=== PATIENT | female | born 1955 | race Caucasian/White ===

== ENCOUNTER 2020-12-05 13:36 | Inpatient (IN) ==
--- NOTE | 2020-12-05 14:16 | XRay Report ---
CLINICAL INFORMATION: Preop COMPARISON: None. TECHNIQUE: Portable FINDINGS: The heart size, mediastinum and pulmonary vessels are unremarkable. The lungs are clear. There are no effusions. The bones and soft tissues are within normal limits. IMPRESSION: Normal chest. Interpreted and Authenticated by: Sánchez Hudson 12/05/20
[2020-12-05 15:06] LABS: ALT/SGPT 21 U/L (<40); AST/SGOT 27 U/L (<32); Albumin 4.6 gm/dL (3.2-5.2); Albumin/Globulin Ratio 1.7 (1.0-2.3); Alkaline Phosphatase 125 U/L (39-117); Bilirubin,Total 0.4 mg/dL (0.1-1.0); Blood Urea Nitrogen 17 mg/dL (8-23); Calcium 9.3 mg/dL (8.6-10.4); Carbon Dioxide 25 mmol/L (22-30); Chloride 102 mmol/L (96-108); Globulin 2.7 gm/dL (2.2-3.7); Glomerular Filtration Rate 77; Glucose 95 mg/dL (70-105)
[2020-12-05 15:50] LABS: Basophils # (Auto) 0.04 K/mcL (0.00-0.20); Basophils % (Auto) 0.3 % (0.0-2.0); Eosinophils # (Auto) 0.02 K/mcL (0.00-0.70); Eosinophils % (Auto) 0.1 % (0.0-7.0); Hematocrit 44.5 % (36.0-48.0); Hemoglobin 14.9 g/dL (12.0-15.0); Lymphocytes # (Auto) 1.15 K/mcL (1.50-4.80); Lymphocytes % (Auto) 8.4 % (15.0-49.0); Mean Cell Volume 88.3 fL (80.0-100.0); Mean Corpuscular HGB Conc 33.5 g/dL (31.0-36.0); Mean Platelet Volume 11.9 fL (7.4-10.4); Monocytes # (Auto) 0.59 K/mcL (0.10-0.90); Monocytes % (Auto) 4.3 % (1.0-12.0); Neutrophils % (Auto) 86.9 % (38.0-78.0); Platelet Count 183 K/mcL (140-440); RBC 5.04 M/mcL (4.00-5.20); Red Cell Distribution Width 13.2 % (11.5-14.5); WBC 13.6 K/mcL (4.5-11.0)
--- NOTE | 2020-12-05 16:00 | Internal Med History&Physical ---
HPI History of Present Illness Patient information: Note initiated : 12/05/20 at 4:00 pm Service Date, if different from initiated Date: [] Patient: Hailee Quintana a 65 y/o F admitted on for Lf femur fracture. Chief Complaint: [] History of present illness: Ms. Quintana is a 65 year old F who lives with her at [place] and fairly healthy at baseline who was getting off her suburban climbing down backward and missed the ledge landing on the concrete surface. Patient immediately felt pain and was taken to the ER where she was diagnosed with left hip fracture. Orthopedics were consulted and recommended transfer patient to [facility] ER for further evaluation and operative intervention. Work-up was essentially unremarkable with a normal biochemical profile, white count 13.5. Patient denies history of DM type II/CAD/CVA/HTN and currently is on no medications. She has 8 kids, has had , non-smoker. She denies precipitating events including lightheadedness dizziness prior or loss of consciousness following fall. Review of systems 10 point review system was performed and is negative except for ones cussed above PFSH PFSH All Active Problems (Updated 12/05/20 @ 16:12 by Barrie Peralta MD) Fracture of hip (Acute) MEDS/ALLERGIES Home Medications and Allergies Home Medications Medication Instructions Recorded Confirmed Type No Known Home Meds 12/05/20 12/05/20 History Allergies Allergy/AdvReac Type Severity Reaction Status Date / Time No Known Drug Allergies Allergy Verified 12/05/20 13:44 EXAM Constitutional Vitals: Temp Pulse Resp BP Pulse Ox 97.9 F 61 18 150/74 97 12/05/20 13:38 12/05/20 15:16 12/05/20 13:38 12/05/20 15:16 12/05/20 15:16 Alert oriented Head normocephalic Oral cavity moist No ear or nose discharge Eye no subconjunctival pallor, movement symmetrical S1-S2 regular Nonlabored breathing Nondistended nontender abdomen Left lower externally Rotated and shortened, no cyanosis clubbing or joint swelling Skin no suspicious lesion Psych anxious but no hallucination Neuro normal higher function on limited neuro exam DATA Data Completed and Pending Labs: Labs from last 24 hours 12/05/20 12/05/20 12/05/20 15:05 14:06 14:06 WBC 13.6 H RBC 5.04 Hgb 14.9 Hct 44.5 MCV 88.3 MCH 29.6 MCHC 33.5 RDW 13.2 Plt Count 183 MPV 11.9 H Neut % (Auto) 86.9 H Lymph % (Auto) 8.4 L [place] % (Auto) 4.3 Eos % (Auto) 0.1 Baso % (Auto) 0.3 Lymph # (Auto) 1.15 L [place] # (Auto) 0.59 Eos # (Auto) 0.02 Baso # (Auto) 0.04 Absolute Neutrophils 11.84 H Sodium 137 Potassium 4.0 Chloride 102 Carbon Dioxide 25 Anion Gap 10.0 BUN 17 Creatinine 0.8 GFR Calculation 77 Glucose 95 Calcium 9.3 Total Bilirubin 0.4 AST 27 ALT 21 Alkaline Phosphatase 125 H Total Protein 7.3 Albumin 4.6 Globulin 2.7 Albumin/Globulin Ratio 1.7 Urine Color Pending Urine Appearance Pending Urine pH Pending Ur Specific [place] Pending Urine Protein Pending Urine Glucose (UA) Pending Urine Ketones Pending Urine Occult Blood Pending Urine Nitrate Pending Urine Bilirubin Pending Urine Urobilinogen Pending Ur Leukocyte Esterase Pending A/P Narrative A/P Narrative: * Left hip fracture orthopedic consulted. Await operative intervention * Preop risk evaluation-moderate to high risk based on her age. No modifiable risk factor. No prior chronic health issues * Pain management on as needed opioids * PT OT post surgery Plan * Inpatient admission * Pain management * Orthopedic consult * Keep n.p.o. after midnight Time Spent With Patient Time: Total time spent is greater than 50% in coordination of care (as documented) at patient's floor/unit and/or counseling patient:
[2020-12-05 16:02] LABS: Appearance,Urine HAZY (Clear); Bilirubin,Urine Negative (Negative); Color,Urine YELLOW; Culture Indicated,Urine No; Glucose,Urine (UA) Negative (Negative); Ketones,Urine 5 mg/dL (Negative); Leukocyte Esterase,Urine Negative /ug (Negative); Nitrate,Urine Negative (Negative); Protein,Urine Negative (Negative); Urine Blood Negative (Negative); Urobilinogen,Urine Negative
--- NOTE | 2020-12-05 16:05 | Emergency Department Note ---
Lower Extremity Injury HPI General Chief Complaint: Extremity Injury, Lower Stated Complaint: Lf femur fracture Time Seen by Provider: 12/05/20 15:15 Source: EMS Mode of arrival: EMS Limitations: no limitations History of Present Illness HPI Narrative: Narrative: Presents to room T4 in transfer from outside facility for higher level of care. The patient had a mechanical fall where she missed stepped out of her truck causing her to fall and break her left hip. She was diagnosed with a femoral neck fracture and Dr. Ortiz has accepted the patient in higher level care for definitive treatment. The patient denies any complaints at the time of my evaluation. She states her pain has been adequately controlled Related Data Allergies Allergy/AdvReac Type Severity Reaction Status Date / Time No Known Drug Allergies Allergy Verified 12/05/20 13:44 Review of Systems ROS ROS Narrative: Narrative: All systems ED: reviewed and negative except as stated. [facility] Narrative Patient History Narrative: Narrative: Medical/Surgical/Family History All Active Problems (Updated 12/05/20 @ 16:12 by Barrie Peralta MD) Fracture of hip (Acute) Social History Smoking Status: Never smoker Exam Narrative Narrative: Narrative: General Limitations: no limitations General appearance: Present alert and in no apparent distress Head Head: Present atraumatic, normocephalic and normal inspection Eye Eye: Present normal appearance and EOMI; Absent conjunctival injection ENT ENT: Present normal exam and mucous membranes moist Neck Neck: Present normal inspection and trachea midline Respiratory Respiratory: Present normal lung sounds bilaterally; Absent respiratory distress Cardiovascular Cardiovascular: Present regular rate, normal rhythm and normal heart sounds Adbominal Abdominal: Present soft; Absent distention, tenderness, guarding and rebound Extremities Extremities: Present normal inspection and tenderness (Moderate diffuse tenderness to palpation over the left greater trochanter. With some swelling.); Absent full ROM (Limited range of motion secondary to pain) Back Back: Present normal inspection; Absent tenderness Neurological Neurological: Present alert, oriented X3 and CN II-XII intact; Absent motor sensory deficit Psychiatric Psychiatric: Present normal affect and normal mood Skin Skin: Present warm (WNL) and dry; Absent rash Course Vital Signs Vital signs: Vital Signs Temperature 97.9 F 12/05/20 13:38 Pulse Rate 73 12/05/20 13:38 Respiratory Rate 18 12/05/20 13:38 Blood Pressure 157/81 12/05/20 13:38 Pulse Oximetry (%) 98 12/05/20 13:38 Temperature 97.9 F 12/05/20 13:38 Pulse Rate 61 12/05/20 15:16 Respiratory Rate 18 12/05/20 13:38 Blood Pressure 150/74 12/05/20 15:16 Pulse Oximetry (%) 97 12/05/20 15:16 MDM MDM Narrative Medical decision making narrative: Narrative: Patient presents for definitive care of a hip fracture from outside facility. Preop labs were ordered and reviewed. Chest x-ray is unremarkable. EKG is unremarkable. Dr. Ortiz was notified. I have also discussed the case with the hospitalist will admit the patient Lab Data Lab results reviewed: Yes I reviewed the patient's lab results. Result diagrams: 12/05/20 14:06 12/05/20 14:06 Labs: Lab Results 12/05/20 12/05/20 Range/Units 14:06 14:06 WBC 13.6 H (4.5-11.0) K/mcL RBC 5.04 (4.00-5.20) M/mcL Hgb 14.9 (12.0-15.0) g/dL Hct 44.5 (36.0-48.0) % MCV 88.3 (80.0-100.0) fL MCH 29.6 (26.0-34.0) pg MCHC 33.5 (31.0-36.0) g/dL RDW 13.2 (11.5-14.5) % Plt Count 183 (140-440) K/mcL MPV 11.9 H (7.4-10.4) fL Neut % (Auto) 86.9 H (38.0-78.0) % Lymph % (Auto) 8.4 L (15.0-49.0) % [place] % (Auto) 4.3 (1.0-12.0) % Eos % (Auto) 0.1 (0.0-7.0) % Baso % (Auto) 0.3 (0.0-2.0) % Lymph # (Auto) 1.15 L (1.50-4.80) K/mcL [place] # (Auto) 0.59 (0.10-0.90) K/mcL Eos # (Auto) 0.02 (0.00-0.70) K/mcL Baso # (Auto) 0.04 (0.00-0.20) K/mcL Absolute Neutrophils 11.84 H (1.80-8.00) K/mcL Sodium 137 (133-145) mmol/L Potassium 4.0 (3.3-5.1) mmol/L Chloride 102 (96-108) mmol/L Carbon Dioxide 25 (22-30) mmol/L Anion Gap 10.0 (8.0-16.0) BUN 17 (8-23) mg/dL Creatinine 0.8 (0.6-1.1) mg/dL GFR Calculation 77 Glucose 95 (70-105) mg/dL Calcium 9.3 (8.6-10.4) mg/dL Total Bilirubin 0.4 (0.1-1.0) mg/dL AST 27 (<32) U/L ALT 21 (<40) U/L Alkaline Phosphatase 125 H (39-117) U/L Total Protein 7.3 (5.9-8.4) gm/dL Albumin 4.6 (3.2-5.2) gm/dL Globulin 2.7 (2.2-3.7) gm/dL Albumin/Globulin Ratio 1.7 (1.0-2.3) ED POC Tests ED POC Tests: CINDY - SARS Antigen Negative Radiology Data Radiology results reviewed: Yes I reviewed the patient's radiology results. EKG Data EKG #1: EKG attestation: Yes I reviewed and interpreted this EKG., Yes There are no EKG findings of acute coronary syndrome and Yes This EKG will be read by powertrain engineer EKG results narrative: Normal sinus rhythm, rate 63, normal ST, normal QRS, no ectopy Rhythm Strip Data Rhythm Strip Rate: 63 Interpretation: Normal sinus rhythm Pulse Oximetry Data Pulse Ox %: 97 Interpretation: Room air, normal Discharge Plan Patient/Caregiver Discharge Instructions Pt seen by FLAT FOLDER/PA only: No Clinical Impression: Fracture of hip Patient Disposition: Xfer As Inpt ([facility]) Follow up with: Unknown,Unknown [Primary Care Provider] -
[2020-12-05] MEDS ORDERED: ONDANSETRON 4 MG ODT TABLET SL PRN (16:29)
[2020-12-05] MEDS ORDERED: traMADol 50 MG TABLET PO PRN (16:29)
[2020-12-05] MEDS ORDERED: BISACODYL 10 MG SUPP.RECT PR PRN (16:29)
[2020-12-05] MEDS ORDERED: guaiFENesin/CODEINE 10 ML UDC PO PRN (16:29)
[2020-12-05] MEDS ORDERED: ACETAMINOPHEN 650 MG/65 ML BAG IV PRN (16:29)
[2020-12-05] MEDS ORDERED: MAGNESIUM SULFATE 2 GM/50 ML BAG IV PRN (16:29)
[2020-12-05] MEDS ORDERED: ACETAMINOPHEN 325 MG TABLET PO PRN (16:29)
[2020-12-05] MEDS ORDERED: POTASSIUM CHLORIDE 40 MEQ in DEXTROSE 5% IN WATER 500 ML IV PRN (16:29)
[2020-12-05] MEDS ORDERED: POLYETHYLENE GLYCOL 3350 17 GM PACKET PO PRN (16:29)
[2020-12-05] MEDS ORDERED: ONDANSETRON 4 MG/2 ML VIAL IV PRN (16:29)
[2020-12-05] MEDS ORDERED: MELATONIN 3 MG TABLET PO PRN (16:29)
[2020-12-05] MEDS: 0.9 % SODIUM CHLORIDE 1,000 ML IV SCH (16:48)
[2020-12-05] MEDS: HYDROmorphone 0.5 MG/0.5 ML SYRINGE IV PRN ×2 (16:49→21:11)
--- NOTE | 2020-12-05 17:18 | EKG ---
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 Measurements Intervals [place] Rate: 63 P: 0 PA: 163 QRS: 52 QRSD: 82 T: 65 QT: 424 QTc: 435 Interpretive Statements Sinus rhythm NO PRIOR TRACING FOR COMPARISON NORMAL TRACING Electronically Signed On 12-05-2020 17:18:28 PDT by Rudy Lisa M.D. /store/M0/[id number]
[2020-12-05] MEDS: DOCUSATE SODIUM 100 MG CAPSULE PO SCH (20:07)
[2020-12-05] MEDS: 0.9 % SODIUM CHLORIDE 10 ML SYRINGE IV SCH (20:08)
[2020-12-05] MEDS ORDERED: SENNOSIDES/DOCUSATE SODIUM 1 TAB TABLET PO SCH (21:00)
[2020-12-05] MEDS ORDERED: METHOCARBAMOL 1,000 MG/10 ML VIAL IV PRN (21:16)
[2020-12-06] MEDS: HYDROmorphone 0.5 MG/0.5 ML SYRINGE IV PRN ×2 (02:31→07:10)
[2020-12-06] MEDS: 0.9 % SODIUM CHLORIDE 10 ML SYRINGE IV SCH ×6 (05:32→23:08)
[2020-12-06 06:39] LABS: Basophils # (Auto) 0.03 K/mcL (0.00-0.20); Basophils % (Auto) 0.3 % (0.0-2.0); Eosinophils # (Auto) 0.09 K/mcL (0.00-0.70); Eosinophils % (Auto) 0.8 % (0.0-7.0); Hematocrit 39.4 % (36.0-48.0); Lymphocytes # (Auto) 2.08 K/mcL (1.50-4.80); Lymphocytes % (Auto) 17.6 % (15.0-49.0); Mean Cell Volume 90.4 fL (80.0-100.0); Mean Platelet Volume 10.4 fL (7.4-10.4); Monocytes # (Auto) 1.11 K/mcL (0.10-0.90); Monocytes % (Auto) 9.4 % (1.0-12.0); Neutrophils % (Auto) 71.9 % (38.0-78.0); Platelet Count 270 K/mcL (140-440); RBC 4.36 M/mcL (4.00-5.20); Red Cell Distribution Width 13.3 % (11.5-14.5); WBC 11.8 K/mcL (4.5-11.0)
[2020-12-06 06:59] LABS: ALT/SGPT 15 U/L (<40); AST/SGOT 15 U/L (<32); Albumin 3.6 gm/dL (3.2-5.2); Albumin/Globulin Ratio 1.4 (1.0-2.3); Alkaline Phosphatase 112 U/L (39-117); Bilirubin,Direct < 0.2 mg/dL (0-0.3); Bilirubin,Total 0.5 mg/dL (0.1-1.0); Blood Urea Nitrogen 13 mg/dL (8-23); Calcium 8.7 mg/dL (8.6-10.4); Carbon Dioxide 25 mmol/L (22-30); Chloride 102 mmol/L (96-108); Globulin 2.5 gm/dL (2.2-3.7); Glomerular Filtration Rate 90; Glucose 110 mg/dL (70-105); Lactate Dehydrogenase 216 U/L (135-225); Phosphorous 3.6 mg/dL (2.5-4.5); Triglycerides 130 mg/dL (<150); Uric Acid 4.7 mg/dL (2.5-8.0)
--- NOTE | 2020-12-06 07:04 | Consultation ---
DATE OF CONSULTATION: 12/05/2020 REASON FOR CONSULTATION: Left hip fracture. CONSULTING PROVIDER: ER physician, Barrie Peralta M.D. at [facility]. HISTORY OF PRESENT ILLNESS: The patient is a 65-year-old otherwise healthy female who presents as a transfer from outside facility for a left displaced femoral neck fracture. She reports that she was getting out of her vehicle when she missed last step and resulted in a fall onto her left hip. She had immediate pain and inability to bear weight and was transferred to the local hospital in [place] at that time and found to have a fracture and was transferred to [facility] given bed availability. She denies any lightheadedness or dizziness or any other injuries with the incident. PAST MEDICAL HISTORY: None reported. PAST SURGICAL HISTORY: None reported. ALLERGIES: No known drug allergies. MEDICATIONS: None routinely. SOCIAL HISTORY: She denies tobacco use. She resides with her in [facility]. PHYSICAL EXAMINATION: GENERAL: The patient is alert, oriented, interactive and appropriate. She is in no acute distress. VITAL SIGNS: She is afebrile with temperature of 97.6, blood pressure is 132/77 with a heart rate of 86, satting 97% on room air. EXTREMITIES: Reveals focal injury to her left lower extremity. Her skin is intact throughout the extremity. She does have road rash type of discoloration over the lateral hip region as well as over the anterior aspect of her left knee. She reports that this is chronic for the last several years in her rash, which she applies lotion to. She has no tenderness to palpation about the knee, leg, the foot. She does have some dependent edema about her foot itself. No joint effusion throughout her foot is warm and well perfused. Sensation is intact. It is externally rotated and somewhat a flexed position. LABORATORY DATA: She has a CBC with white count of 13.6, hemoglobin 14.9, hematocrit 44.5, platelets 183. Her creatinine is 0.8 and glucose is 95. Her UA is negative. IMAGING: Reviewed from [place] demonstrated a displaced femoral neck fracture with mild underlying osteoarthritis of the hip joint itself. ASSESSMENT AND PLAN: This is a 65-year-old female, otherwise relatively healthy. However, overweight with a displaced left femoral neck fracture. I discussed the diagnosis with her as well as treatment options. Discussed that fixing this with operative intervention such as a typical fracture would likely lead to nonunion or femoral head avascular necrosis, which will be painful and require intervention. These typically are treated with a hip hemiarthroplasty or total hip arthroplasty. Given her age and mild underlying osteoarthritis, I do think that a total hip arthroplasty would be in her best interest. I discussed this with her at length and discussed the risk of this procedure versus doing talat, discussed the benefits of either. After discussion with her, she does want to proceed with total hip arthroplasty. I have discussed this case with Dr. العلي who agrees with proceeding with her case tomorrow morning. She will remain n.p.o. and nonweightbearing until then. Otherwise, her questions were answered. DLW:man Job ID: [id number] Doc ID: [id number] Jovanni Ortiz MD [facility]
[2020-12-06] MEDS: MULTIVIT,THER IRON,CA,FA & MIN 1 TABLET PO SCH (07:45)
[2020-12-06] MEDS: DOCUSATE SODIUM 100 MG CAPSULE PO SCH ×2 (07:45→21:00)
[2020-12-06] MEDS ORDERED: IPRATROPIUM/ALBUTEROL 3 ML AMPUL.NEB NEB PRN ×2 (09:00→13:13)
[2020-12-06] MEDS ORDERED: SCOPOLAMINE 1 PATCH PATCH TOPICAL PRN (10:00)
--- NOTE | 2020-12-06 10:19 | Internal Med Progress Note ---
SUBJECTIVE Subjective Patient information: Note initiated : 12/06/20 at 10:17 am Service Date, if different from initiated Date: [] Patient: Hailee Quintana a 65 y/o F admitted on 12/05/20 for Lf femur fracture. Chief Complaint: [] Interval history: Ms. Quintana is a 65 year old F who lives with her at [place] and fairly healthy at baseline who was getting off her suburban climbing down backward and missed the ledge landing on the concrete surface. Patient immediately felt pain and was taken to the ER where she was diagnosed with left hip fracture. Orthopedics were consulted and recommended transfer patient to [facility] ER for further evaluation and operative intervention. Work-up was essentially unremarkable with a normal biochemical profile, white count 13.5. Patient denies history of DM type II/CAD/CVA/HTN and currently is o n no medications. She has 8 kids, has had , non-smoker. She denies precipitating events including lightheadedness dizziness prior or loss of consciousness following fall. 12/06-patient doing well. Await surgery this morning. Pain good control. No overnight fever chills. Will review postop Constitutional Vitals: Vital Signs Temp Pulse Resp BP Pulse Ox 97.7 F 75 16 159/81 96 12/06/20 07:44 12/06/20 07:44 12/06/20 07:44 12/06/20 07:44 12/06/20 07:44 Period Temp Pulse Resp BP Sys/Jarvis Pulse Ox Last 24 Hr 97.5 F-98.4 F 60-86 16-20 139-183/74-94 94-100 Intake and Output 12/05/20 12/06/20 12/06/20 21:59 05:59 13:59 Intake Total 600 400 0 Output Total 1000 Balance 600 -600 0 Weight 86.183 kg alert oriented Nonlabored breathing No anxiety Left lower extremity externally rotated and shortened Intake & Output: Intake & Output 12/05/20 12/06/20 12/06/20 21:59 05:59 13:59 Intake Total 600 400 0 Output Total 1000 Balance 600 -600 0 Weight 86.183 kg Intake: Oral 600 400 0 Output: Urine Catheter Amount 1000 Other: Meal Dinner Percent of Meal Consumed 100% Feeding Ability Independent Urine Appearance Clear Clear Clear Uretheral (Jonas) Clear Clear Urine Color Pale Pale Straw Uretheral (Jonas) Straw Straw Urine Odor Normal Normal Normal Uretheral (Jonas) Normal Normal OBJ DATA Labs CBC & Chem 7: 12/06/20 05:35 12/06/20 05:35 Labs: Abnormal Lab Results 12/06/20 12/06/20 12/05/20 05:35 05:35 15:05 WBC 11.8 H MPV Neut % (Auto) Lymph % (Auto) Lymph # (Auto) [place] # (Auto) 1.11 H Absolute Neutrophils 8.51 H Anion Gap 7.0 L Glucose 110 H Alkaline Phosphatase Urine Appearance Hazy A Urine Ketones 5 A 12/05/20 12/05/20 14:06 14:06 WBC 13.6 H MPV 11.9 H Neut % (Auto) 86.9 H Lymph % (Auto) 8.4 L Lymph # (Auto) 1.15 L [place] # (Auto) Absolute Neutrophils 11.84 H Anion Gap Glucose Alkaline Phosphatase 125 H Urine Appearance Urine Ketones Meds: Medications Acetaminophen (Acetaminophen 325 Mg Tablet) 650 mg PO Q4-6HP PRN; Protocol PRN Reason: Per Pain Protocol/Fever > 101 Albuterol/Ipratropium (Ipratropium/Albuterol 3 Ml Ampul.Neb) 3 ml NEB ONCE PRN PRN Reason: Shortness Of Breath Stop: 12/06/20 16:00 Bisacodyl (Bisacodyl 10 Mg Supp.Rect) 10 mg MI Q2-3DAYS PRN PRN Reason: Constipation Docusate Sodium (Docusate Sodium 100 Mg Capsule) 100 mg PO BID [facility] Last Admin: 12/06/20 07:45 Dose: Not Given Documented by: Guaifenesin/Codeine Phosphate (Guaifenesin/Codeine 10 Ml Udc) 10 ml PO Q4HP PRN PRN Reason: Cough Hydromorphone HCl (Hydromorphone 0.5 Mg/0.5 Ml Syringe) 0.25 - 0.5 mg IV Q4HP PRN; Protocol PRN Reason: Per Pain Protocol Last Admin: 12/06/20 07:10 Dose: 0.5 mg Documented by: Potassium Chloride 40 meq/ (Dextrose) 520 mls @ 130 mls/hr IV UD PRN PRN Reason: K+ = or < 3.5 Acetaminophen (Ofirmev) 650 mg in 65 mls @ 130 mls/hr IV Q6HP PRN; Protocol PRN Reason: Per Pain Protocol/Fever > 101 Magnesium Sulfate (Magnesium Sulfate) 2 gm in 50 mls @ 50 mls/hr IV UD PRN PRN Reason: MG = or < 1.7 Sodium Chloride (Sodium Chloride 0.9%) 1,000 mls @ 50 mls/hr IV .Q20H [facility] Stop: 12/08/20 04:28 Last Admin: 12/05/20 16:48 Dose: 50 mls/hr Documented by: Iron Carb/Multivit/Access Clerk/Folic Acid (Multivit,Ther Iron,Ca,Fa & Min 1 Tablet) 1 tab PO DAILY [facility] Last Admin: 12/06/20 07:45 Dose: Not Given Documented by: Melatonin (Melatonin 3 Mg Tablet) 3 mg PO HSP PRN PRN Reason: Insomnia Methocarbamol (Methocarbamol 1,000 Mg/10 Ml Vial) 750 mg IV Q6HP PRN PRN Reason: Muscle Spasm Last Admin: 12/05/20 23:59 Dose: 750 mg Documented by: Ondansetron HCl (Ondansetron 4 Mg Odt Tablet) 4 mg SL Q4-6HP PRN; Protocol PRN Reason: Nausea And Vomiting Ondansetron HCl (Ondansetron 4 Mg/2 Ml Vial) 4 mg IV Q4-6HP PRN; Protocol PRN Reason: Nausea And Vomiting Polyethylene Glycol (Polyethylene Glycol 3350 17 Gm Packet) 17 gm PO DAILYP PRN PRN Reason: Constipation Scopolamine (Scopolamine 1 Patch Patch) 1 patch TOPICAL PREOP PRN PRN Reason: Nausea And Vomiting Stop: 12/06/20 16:00 Senna/Docusate Sodium (Sennosides/Docusate Sodium 1 Tab Tablet) 1 tab PO HS [facility] Last Admin: 12/05/20 20:08 Dose: Not Given Documented by: Sodium Chloride (0.9 % Sodium Chloride 10 Ml Syringe) 10 ml IV Q8 [facility] Last Admin: 12/06/20 05:32 Dose: Not Given Documented by: Tramadol HCl (Tramadol 50 Mg Tablet) 50 mg PO Q4-6HP PRN; Protocol PRN Reason: Per Pain Protocol A/P Narrative A/P Narrative: * Left hip fracture orthopedic consulted. Surgery today. Will review postop * Pain management on as needed opioids * PT OT post surgery as per orthopedics Plan * Review postop * Pain management * No further recommendations from hospitalist service Time Spent With Patient Time: Total time spent is greater than 50% in coordination of care (as documented) at patient's floor/unit and/or counseling patient: QUALITY VTE Deep Vein Thrombosis/Pulmonary Embolism Present on Admission: No
[2020-12-06] MEDS ORDERED: ceFAZolin 2 GM in DEXTROSE 5% IN WATER 50 ML IV SCH (11:30)
[2020-12-06] MEDS ORDERED: MIDAZOLAM 2 MG/2 ML VIAL ONE (11:45)
[2020-12-06] MEDS ORDERED: ONDANSETRON 4 MG/2 ML VIAL ONE (11:45)
[2020-12-06] MEDS ORDERED: GLYCOPYRROLATE 0.2 MG/ML VIAL IV ONE (11:45)
[2020-12-06] MEDS ORDERED: PROPOFOL 200 MG/20 ML VIAL IV ONE (11:45)
[2020-12-06] MEDS ORDERED: KETAMINE 50 MG/ML ML ONE (11:45)
[2020-12-06] MEDS ORDERED: DEXAMETHASONE 10 MG/ML VIAL ONE (11:45)
[2020-12-06] MEDS ORDERED: LIDOCAINE HCL/PF 100 MG/5 ML SYRINGE IV ONE (11:45)
[2020-12-06] MEDS ORDERED: TRANEXAMIC ACID 1,000 MG/10 ML VIAL IV ONE (11:45)
[2020-12-06] MEDS ORDERED: PHENYLEPHRINE 10 MG/ML VIAL ONE (11:45)
--- NOTE | 2020-12-06 11:45 | Discharge Plan ---
Discharge Instructions - [facility] Patient Instructions Total Hip Protocol: Follow activity instructions as provided by Physical Therapy. Discharge Plan Patient/Caregiver Discharge Instructions Activity: ambulate only with your walker and as per physical therapy Diet: Regular Diet Prescriptions: New docusate sodium [DOK] 100 mg Capsule 100 mg PO BID Qty: 60 RF: 0 hydrocodone-acetaminophen 10-325 mg Tablet 1 - 2 tab PO Q4H PRN (Reason: Pain) Qty: 75 RF: 0 aspirin [Ecotrin Low Strength] 81 mg tablet,delayed release (DR/EC) 81 mg PO BID Qty: 60 RF: 0 No Action No Known Home Meds RF: 0 Other Ambulatory Orders: Physical Therapy DC - [facility] (Routine) Location: None Selected Ordered By: Navid Carrillo Toilet Riser Discharge Order (ONCE) Location: None Selected Ordered By: Navid Man (ONCE) Location: None Selected Ordered By: Navid Carrillo Follow Up Plan Follow up with: Unknown,Unknown [Primary Care Provider] - Navid Carrillo PA-C [Physician Regulatory Law Specialist] - Patient Disposition: Home, Self-Care Prognosis: Good Rehab Potential: Good I certify that the patient requires SNF services: No Overall status at discharge: patient is progressing back to baseline Discharge Orders: Discharge Order (Routine); Ordered 12/07/20 Ordered By: Navid Carrillo
[2020-12-06] MEDS ORDERED: GENTAMICIN SULFATE 800 MG/20 ML VIAL IR ONE (12:26)
--- NOTE | 2020-12-06 13:01 | XRay Report ---
CLINICAL INFORMATION: surgery COMPARISON: None. FINDINGS: Intraoperative film shows left femoral stem template in satisfactory position. Left prosthetic acetabulum also satisfactory position. No osseous abnormalities. IMPRESSION: Intraoperative films left hip prostheses placement. Interpreted and Authenticated by: Sánchez Hudson 12/06/20
[2020-12-06] MEDS ORDERED: fentaNYL 100 MCG/2 ML VIAL IV PRN (13:13)
[2020-12-06] MEDS ORDERED: PROMETHAZINE 25 MG/ML VIAL IV PRN (13:13)
[2020-12-06] MEDS ORDERED: KETOROLAC 30 MG/ML VIAL IV PRN (13:13)
[2020-12-06] MEDS ORDERED: ACETAMINOPHEN 1,000 MG/100 ML BAG IV ONE (13:13)
--- NOTE | 2020-12-06 13:22 | Brief Operative Note ---
Brief Operative Note Date of procedure: 12/06/20 Pre-op diagnosis: Left femoral neck fracture Post-op diagnosis: same Procedure: Left total hip Grafts/Implants: Yes Anesthesia: GETA Complications: none Surgeon: Stevan العلي Forest Management Teacher: Navid Carrillo Estimated blood loss (cc): 50 Specimens Removed/Pathology: none sent Condition: stable Disposition: PACU
[2020-12-06] MEDS ORDERED: TRANEXAMIC ACID 1,000 MG/10 ML VIAL IV SCH (13:23)
[2020-12-06] MEDS ORDERED: BENZOCAINE/MENTHOL 1 LOZENGE PO PRN (13:23)
[2020-12-06] MEDS ORDERED: HYDROmorphone 1 MG/ML SYRINGE IV PRN (13:23)
[2020-12-06] MEDS ORDERED: POLYETHYLENE GLYCOL 3350 17 GM PACKET PO PRN (13:23)
[2020-12-06] MEDS ORDERED: BISACODYL 10 MG SUPP.RECT PR PRN (13:23)
[2020-12-06] MEDS ORDERED: ONDANSETRON 4 MG/2 ML VIAL IV PRN ×2 (13:23)
[2020-12-06] MEDS ORDERED: MAGNESIUM HYDROXIDE 30 ML ORAL.SUSP PO PRN (13:23)
[2020-12-06] MEDS ORDERED: ACETAMINOPHEN 325 MG TABLET PO PRN (13:23)
[2020-12-06] MEDS ORDERED: TEMAZEPAM 15 MG CAPSULE PO PRN (13:23)
[2020-12-06] MEDS ORDERED: FLEETS ADULT ENEMA PR PRN (13:23)
[2020-12-06] MEDS ORDERED: LACTATED RINGERS 1,000 ML IV SCH (13:30)
[2020-12-06] MEDS ORDERED: KETOROLAC 15 MG/ML VIAL IV PRN (13:30)
--- NOTE | 2020-12-06 13:37 | Internal Med Progress Note ---
SUBJECTIVE Subjective Patient information: Note initiated : 12/06/20 at 1:35 pm Service Date, if different from initiated Date: [] Patient: Hailee Quintana a 65 y/o F admitted on 12/05/20 for Lf femur fracture. Chief Complaint: [] Interval history: Ms. Quintana is a 65 year old F who lives with her at [place] and fairly healthy at baseline who was getting off her suburban climbing down backward and missed the ledge landing on the concrete surface. Patient immediately felt pain and was taken to the ER where she was diagnosed with left hip fracture. Orthopedics were consulted and recommended transfer patient to [facility] ER for further evaluation and operative intervention. Work-up was essentially unremarkable with a normal biochemical profile, white count 13.5. Patient denies history of DM type II/CAD/CVA/HTN and currently is on no medications. She has 8 kids, has had , non-smoker. She denies precipitating events including lightheadedness dizziness prior or loss of consciousness following fall. 12/06-patient doing well. Await surgery this morning. Pain good control. No overnight fever chills. Will review postop Constitutional Vitals: Vital Signs Temp Pulse Resp BP Pulse Ox 97.7 F 75 16 159/81 96 12/06/20 07:44 12/06/20 07:44 12/06/20 07:44 12/06/20 07:44 12/06/20 07:44 Period Temp Pulse Resp BP Sys/Jarvis Pulse Ox Last 24 Hr 97.5 F-98.4 F 60-86 16-20 139-183/74-94 94-100 Intake and Output 12/05/20 12/06/20 12/06/20 21:59 05:59 13:59 Intake Total 383 765 5120 Output Total 1000 300 Balance 600 -600 1150 Weight 86.183 kg Intake & Output: Intake & Output 12/05/20 12/06/20 12/06/20 21:59 05:59 13:59 Intake Total 595 858 0549 Output Total 1000 300 Balance 600 -600 1150 Weight 86.183 kg Intake: IV 50 Ancef 2 gm In Dextrose 5% in 50 Water 50 ml @ 100 mls/hr IV PREOP SUSAN Rx#:[id number] Oral 600 400 0 IV - Manual Only 1400 Output: Urine Catheter Amount 1000 250 Estimated Blood Loss 50 Other: Meal Dinner Percent of Meal Consumed 100% Feeding Ability Independent Urine Appearance Clear Clear Clear Uretheral (Jonas) Clear Clear Urine Color Pale Pale Straw Uretheral (Jonas) Straw Straw Urine Odor Normal Normal Normal Uretheral (Jonas) Normal Normal Exam: General: Alert, Awake, No acute Distress Eyes/N/T: EOMI, Head/Neck: neck supple, CV: RRR, No murmurs, Pulm: Clear b/l, no wheezing/rhonchi/rales Abd: soft, nontender, +BS x4 Ext: no clubbing/cyanosis/edema, Neuro: Alert, no focal deficits, moves all extremities, Skin: warm/dry OBJ DATA Labs CBC & Chem 7: 12/06/20 05:35 12/06/20 05:35 Labs: Abnormal Lab Results 12/06/20 12/06/20 12/05/20 05:35 05:35 15:05 WBC 11.8 H MPV Neut % (Auto) Lymph % (Auto) Lymph # (Auto) [place] # (Auto) 1.11 H Absolute Neutrophils 8.51 H Anion Gap 7.0 L Glucose 110 H Alkaline Phosphatase Urine Appearance Hazy A Urine Ketones 5 A 12/05/20 12/05/20 14:06 14:06 WBC 13.6 H MPV 11.9 H Neut % (Auto) 86.9 H Lymph % (Auto) 8.4 L Lymph # (Auto) 1.15 L [place] # (Auto) Absolute Neutrophils 11.84 H Anion Gap Glucose Alkaline Phosphatase 125 H Urine Appearance Urine Ketones Meds: Medications Acetaminophen (Acetaminophen 325 Mg Tablet) 650 mg PO Q4-6HP PRN; Protocol PRN Reason: Per Pain Protocol/Fever > 101 Acetaminophen (Acetaminophen 325 Mg Tablet) 650 mg PO Q6HP PRN; Protocol PRN Reason: Per Pain Protocol/Fever > 101 Hydrocodone Bitart/Acetaminophen (Hydrocodone/Apap 10/325mg Tablet) 1 - 2 tab PO Q4HP PRN; Protocol PRN Reason: Per Pain Protocol Albuterol/Ipratropium (Ipratropium/Albuterol 3 Ml Ampul.Neb) 3 ml NEB ONCE PRN PRN Reason: Shortness Of Breath Stop: 12/06/20 16:00 Albuterol/Ipratropium (Ipratropium/Albuterol 3 Ml Ampul.Neb) 3 ml NEB ONCE PRN PRN Reason: Wheezing Stop: 12/06/20 15:14 Bisacodyl (Bisacodyl 10 Mg Supp.Rect) 10 mg TN Q2-3DAYS PRN PRN Reason: Constipation Bisacodyl (Bisacodyl 10 Mg Supp.Rect) 10 mg TN Q2-3DAYS PRN PRN Reason: Constipation Cefazolin Sodium (Cefazolin 1 Gm Vial) 2 gm IV Q8H SUSAN; Protocol Stop: 12/06/20 21:31 Docusate Sodium (Docusate Sodium 100 Mg Capsule) 100 mg PO BID [facility] Last Admin: 12/06/20 07:45 Dose: Not Given Documented by: Docusate Sodium (Docusate Sodium 100 Mg Capsule) 100 mg PO BID [facility] Fentanyl (Fentanyl 100 Mcg/2 Ml Vial) 25 mcg IV Q2M PRN PRN Reason: Pain Stop: 12/06/20 15:14 Guaifenesin/Codeine Phosphate (Guaifenesin/Codeine 10 Ml Udc) 10 ml PO Q4HP PRN PRN Reason: Cough Hydromorphone HCl (Hydromorphone 0.5 Mg/0.5 Ml Syringe) 0.25 - 0.5 mg IV Q4HP PRN; Protocol PRN Reason: Per Pain Protocol Last Admin: 12/06/20 07:10 Dose: 0.5 mg Documented by: Hydromorphone HCl (Hydromorphone 1 Mg/Ml Syringe) 0.5 - 2 mg IV Q2HP PRN; Protocol PRN Reason: Per Pain Protocol Potassium Chloride 40 meq/ (Dextrose) 520 mls @ 130 mls/hr IV UD PRN PRN Reason: K+ = or < 3.5 Acetaminophen (Ofirmev) 650 mg in 65 mls @ 130 mls/hr IV Q6HP PRN; Protocol PRN Reason: Per Pain Protocol/Fever > 101 Magnesium Sulfate (Magnesium Sulfate) 2 gm in 50 mls @ 50 mls/hr IV UD PRN PRN Reason: MG = or < 1.7 Sodium Chloride (Sodium Chloride 0.9%) 1,000 mls @ 50 mls/hr IV .Q20H [facility] Stop: 12/08/20 04:28 Last Admin: 12/05/20 16:48 Dose: 50 mls/hr Documented by: Cefazolin Sodium 2 gm/ (Dextrose) 50 mls @ 100 mls/hr IV PREOP SUSAN; Protocol Stop: 12/06/20 17:00 Last Infusion: 12/06/20 12:15 Dose: Infused Documented by: Acetaminophen (Ofirmev) 1,000 mg in 100 mls @ 200 mls/hr IV ONCE ONE Stop: 12/06/20 13:42 Last Admin: 12/06/20 13:31 Dose: 200 mls/hr Documented by: Lactated Ringer's (Lactated Ringers) 1,000 mls @ 100 mls/hr IV .Q10H [facility] Iron Carb/Multivit/[place]/Folic Acid (Multivit,Ther Iron,Ca,Fa & Min 1 Tablet) 1 tab PO DAILY [facility] Last Admin: 12/06/20 07:45 Dose: Not Given Documented by: Magnesium Hydroxide (Magnesium Hydroxide 30 Ml Oral.Susp) 30 ml PO BIDP PRN PRN Reason: Constipation Melatonin (Melatonin 3 Mg Tablet) 3 mg PO HSP PRN PRN Reason: Insomnia Methocarbamol (Methocarbamol 1,000 Mg/10 Ml Vial) 750 mg IV Q6HP PRN PRN Reason: Muscle Spasm Last Admin: 12/05/20 23:59 Dose: 750 mg Documented by: Ondansetron HCl (Ondansetron 4 Mg Odt Tablet) 4 mg SL Q4-6HP PRN; Protocol PRN Reason: Nausea And Vomiting Ondansetron HCl (Ondansetron 4 Mg/2 Ml Vial) 4 mg IV Q4-6HP PRN; Protocol PRN Reason: Nausea And Vomiting Ondansetron HCl (Ondansetron 4 Mg/2 Ml Vial) 4 mg IV Q4HP PRN; Protocol PRN Reason: Nausea And Vomiting Ondansetron HCl (Ondansetron 4 Mg/2 Ml Vial) 4 mg IV Q4HP PRN; Protocol PRN Reason: Nausea And Vomiting Polyethylene Glycol (Polyethylene Glycol 3350 17 Gm Packet) 17 gm PO DAILYP PRN PRN Reason: Constipation Polyethylene Glycol (Polyethylene Glycol 3350 17 Gm Packet) 17 gm PO DAILYP PRN PRN Reason: Constipation Promethazine HCl (Promethazine 25 Mg/Ml Vial) 6.25 mg IV Q15M PRN PRN Reason: Nausea And Vomiting Stop: 12/06/20 15:15 Scopolamine (Scopolamine 1 Patch Patch) 1 patch TOPICAL PREOP PRN PRN Reason: Nausea And Vomiting Stop: 12/06/20 16:00 Senna (Sennosides 1 Tablet) 2 tab PO HS SUSAN Senna/Docusate Sodium (Sennosides/Docusate Sodium 1 Tab Tablet) 1 tab PO HS [facility] Last Admin: 12/05/20 20:08 Dose: Not Given Documented by: Sodium Biphosphate/Sodium Phosphate (Fleets Adult Enema) 1 dose TN Q3-4DAYS PRN PRN Reason: Constipation Sodium Chloride (0.9 % Sodium Chloride 10 Ml Syringe) 10 ml IV Q8 [facility] Last Admin: 12/06/20 05:32 Dose: Not Given Documented by: Sodium Chloride (0.9 % Sodium Chloride 10 Ml Syringe) 10 ml IV Q8 [facility] Temazepam (Temazepam 15 Mg Capsule) 15 mg PO HSP PRN PRN Reason: Insomnia Throat Lozenges (Benzocaine/Menthol 1 Lozenge) 1 lozenge PO PRN PRN PRN Reason: Sore Throat Tramadol HCl (Tramadol 50 Mg Tablet) 50 mg PO Q4-6HP PRN; Protocol PRN Reason: Per Pain Protocol Tranexamic Acid (Tranexamic Acid 1,000 Mg/10 Ml Vial) 1,000 mg IV ONCE ONE Stop: 12/06/20 13:24 A/P Narrative A/P Narrative: A/P: *Left hip fracture: s/p ORIF (12/06) -hip/Pain management per ortho -PT OT post surgery as per orthopedics -CM for placement -ppx post op per ortho Time Spent With Patient Time: Total time spent is greater than 50% in coordination of care (as documented) at patient's floor/unit and/or counseling patient: QUALITY VTE Deep Vein Thrombosis/Pulmonary Embolism Present on Admission: No
[2020-12-06] MEDS: 0.9 % SODIUM CHLORIDE 1,000 ML IV SCH (14:25)
--- NOTE | 2020-12-06 15:21 | XRay Report ---
CLINICAL INFORMATION: Post-Op Total Hip COMPARISON: None. 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 There is slightly more anteversion of the prosthetic acetabulum than typically seen. Mild degenerative change in the right hip and both SI joints. No osseous abnormality. Catheter overlies the urinary bladder in expected location. Soft tissue swelling gas seen over the left hip as expected. IMPRESSION: Left total hip prostheses in near anatomic alignment. Interpreted and Authenticated by: Sánchez Hudson 12/06/20
[2020-12-06] MEDS: HYDROcodone/APAP 10/325MG TABLET PO PRN ×3 (16:43→23:56)
[2020-12-06] MEDS: ceFAZolin 1 GM VIAL IV SCH (19:57)
[2020-12-06] MEDS: SENNOSIDES 1 TABLET PO SCH (21:00)
[2020-12-07] MEDS: ceFAZolin 1 GM VIAL IV SCH (04:01)
[2020-12-07] MEDS: HYDROcodone/APAP 10/325MG TABLET PO PRN ×4 (04:01→21:09)
[2020-12-07] MEDS: 0.9 % SODIUM CHLORIDE 10 ML SYRINGE IV SCH ×6 (04:01→21:10)
[2020-12-07] MEDS: DOCUSATE SODIUM 100 MG CAPSULE PO SCH ×2 (08:26→21:10)
[2020-12-07] MEDS: MULTIVIT,THER IRON,CA,FA & MIN 1 TABLET PO SCH (08:26)
[2020-12-07 08:31] LABS: Basophils # (Auto) 0.03 K/mcL (0.00-0.20); Basophils % (Auto) 0.2 % (0.0-2.0); Eosinophils # (Auto) 0 K/mcL (0.00-0.70); Eosinophils % (Auto) 0 % (0.0-7.0); Hematocrit 38.9 % (36.0-48.0); Hemoglobin 12.7 g/dL (12.0-15.0); Lymphocytes # (Auto) 1.86 K/mcL (1.50-4.80); Lymphocytes % (Auto) 12.3 % (15.0-49.0); Mean Cell Volume 90.9 fL (80.0-100.0); Mean Corpuscular HGB Conc 32.6 g/dL (31.0-36.0); Mean Platelet Volume 10.8 fL (7.4-10.4); Monocytes # (Auto) 1.64 K/mcL (0.10-0.90); Monocytes % (Auto) 10.8 % (1.0-12.0); Neutrophils % (Auto) 76.7 % (38.0-78.0); Platelet Count 256 K/mcL (140-440); RBC 4.28 M/mcL (4.00-5.20); Red Cell Distribution Width 13.4 % (11.5-14.5); WBC 15.1 K/mcL (4.5-11.0)
--- NOTE | 2020-12-07 08:44 | Internal Med Progress Note ---
SUBJECTIVE Subjective Patient information: Note initiated : 12/07/20 at 8:41 am Service Date, if different from initiated Date: [] Patient: Hailee Quintana a 65 y/o F admitted on 12/05/20 for Lf femur fracture. Chief Complaint: [] Interval history: Ms. Quintana is a 65 year old F who lives with her at [place] and fairly healthy at baseline who was getting off her suburban climbing down backward and missed the ledge landing on the concrete surface. Patient immediately felt pain and was taken to the ER where she was diagnosed with left hip fracture. Orthopedics were consulted and recommended transfer patient to [facility] ER for further evaluation and operative intervention. Work-up was essentially unremarkable with a normal biochemical profile, white count 13.5. Patient denies history of DM type II/CAD/CVA/HTN and currently is on no medications. She has 8 kids, has had , non-smoker. She denies precipitating events including lightheadedness dizziness prior or loss of consciousness following fall. 12/06-patient doing well. Await surgery this morning. Pain good control. No overnight fever chills. Will review postop 12/07 Patient doing well. No overnight events. Had surgery yesterday. Elevated white blood cell count but patient feels well and is afebrile. No cough or urinary symptoms. Review of Systems: denies headache/fever/chills/nausea/vomiting/chest or abdominal pain/cough/dyspnea/diarrhea. Otherwise see above. Constitutional Vitals: Vital Signs Temp Pulse Resp BP Pulse Ox 97.7 F 80 16 134/69 96 12/07/20 08:00 12/07/20 08:00 12/07/20 08:00 12/07/20 08:00 12/07/20 08:00 Period Temp Pulse Resp BP Sys/Jarvis Pulse Ox Last 24 Hr 96.9 F-97.8 F 54-82 8-20 111-158/58-84 93-100 Intake and Output 12/06/20 12/07/20 12/07/20 21:59 05:59 13:59 Intake Total 1200 1400 400 Output Total 1400 500 Balance -200 900 400 Weight 93.848 kg Intake & Output: Intake & Output 12/06/20 12/07/20 12/07/20 21:59 05:59 13:59 Intake Total 1200 1400 400 Output Total 1400 500 Balance -200 900 400 Weight 93.848 kg Intake: IV 100 1000 Lactated Ringers 1,000 ml @ 100 1000 mls/hr IV .Q10H [facility] Rx#: [id number] Oral 1000 400 400 IV - Manual Only 100 Output: Urine Catheter Amount 1400 Uretheral (Jonas) 1200 Void Amount 500 Other: Meal Dinner Percent of Meal Consumed 100% Feeding Ability Independent Urine Appearance Clear Clear Clear Uretheral (Jonas) Clear Urine Color Pale Bright Yellow Straw Uretheral (Jonas) Pale Urine Odor Normal Uretheral (Jonas) Normal Exam: General: Alert, Awake, No acute Distress Eyes/N/T: EOMI, Head/Neck: neck supple, CV: RRR, No murmurs, Pulm: Clear b/l, no wheezing/rhonchi/rales Abd: soft, nontender, +BS x4 Ext: no clubbing/cyanosis/edema, Neuro: Alert, no focal deficits, moves all extremities, Skin: warm/dry OBJ DATA Labs CBC & Chem 7: 12/07/20 06:12 12/07/20 06:12 Labs: Abnormal Lab Results 12/07/20 12/06/20 12/06/20 06:12 05:35 05:35 WBC 15.1 H 11.8 H MPV 10.8 H Neut % (Auto) Lymph % (Auto) 12.3 L Lymph # (Auto) [place] # (Auto) 1.64 H 1.11 H Absolute Neutrophils 11.61 H 8.51 H Anion Gap 7.0 L Glucose 110 H Alkaline Phosphatase Urine Appearance Urine Ketones 12/05/20 12/05/20 12/05/20 15:05 14:06 14:06 WBC 13.6 H MPV 11.9 H Neut % (Auto) 86.9 H Lymph % (Auto) 8.4 L Lymph # (Auto) 1.15 L [place] # (Auto) Absolute Neutrophils 11.84 H Anion Gap Glucose Alkaline Phosphatase 125 H Urine Appearance Hazy A Urine Ketones 5 A Meds: Medications Acetaminophen (Acetaminophen 325 Mg Tablet) 650 mg PO Q4-6HP PRN; Protocol PRN Reason: Per Pain Protocol/Fever > 101 Hydrocodone Bitart/Acetaminophen (Hydrocodone/Apap 10/325mg Tablet) 1 - 2 tab PO Q4HP PRN; Protocol PRN Reason: Per Pain Protocol Last Admin: 12/07/20 04:01 Dose: 1 tab Documented by: Bisacodyl (Bisacodyl 10 Mg Supp.Rect) 10 mg MS Q2-3DAYS PRN PRN Reason: Constipation Docusate Sodium (Docusate Sodium 100 Mg Capsule) 100 mg PO BID [facility] Last Admin: 12/07/20 08:26 Dose: 100 mg Documented by: Guaifenesin/Codeine Phosphate (Guaifenesin/Codeine 10 Ml Udc) 10 ml PO Q4HP PRN PRN Reason: Cough Hydromorphone HCl (Hydromorphone 1 Mg/Ml Syringe) 0.5 - 2 mg IV Q2HP PRN; Protocol PRN Reason: Per Pain Protocol Potassium Chloride 40 meq/ (Dextrose) 520 mls @ 130 mls/hr IV UD PRN PRN Reason: K+ = or < 3.5 Acetaminophen (Ofirmev) 650 mg in 65 mls @ 130 mls/hr IV Q6HP PRN; Protocol PRN Reason: Per Pain Protocol/Fever > 101 Magnesium Sulfate (Magnesium Sulfate) 2 gm in 50 mls @ 50 mls/hr IV UD PRN PRN Reason: MG = or < 1.7 Iron Carb/Multivit/[employer]ic/Folic Acid (Multivit,Ther Iron,Ca,Fa & Min 1 Tablet) 1 tab PO DAILY [facility] Last Admin: 12/07/20 08:26 Dose: 1 tab Documented by: Magnesium Hydroxide (Magnesium Hydroxide 30 Ml Oral.Susp) 30 ml PO BIDP PRN PRN Reason: Constipation Melatonin (Melatonin 3 Mg Tablet) 3 mg PO HSP PRN PRN Reason: Insomnia Ondansetron HCl (Ondansetron 4 Mg Odt Tablet) 4 mg SL Q4-6HP PRN; Protocol PRN Reason: Nausea And Vomiting Ondansetron HCl (Ondansetron 4 Mg/2 Ml Vial) 4 mg IV Q4-6HP PRN; Protocol PRN Reason: Nausea And Vomiting Polyethylene Glycol (Polyethylene Glycol 3350 17 Gm Packet) 17 gm PO DAILYP PRN PRN Reason: Constipation Senna (Sennosides 1 Tablet) 2 tab PO HS [facility] Last Admin: 12/06/20 21:00 Dose: 2 tab Documented by: Sodium Biphosphate/Sodium Phosphate (Fleets Adult Enema) 1 dose MS Q3-4DAYS PRN PRN Reason: Constipation Sodium Chloride (0.9 % Sodium Chloride 10 Ml Syringe) 10 ml IV Q8 [facility] Last Admin: 12/07/20 04:01 Dose: 10 ml Documented by: Sodium Chloride (0.9 % Sodium Chloride 10 Ml Syringe) 10 ml IV Q8 [facility] Last Admin: 12/07/20 04:07 Dose: 10 ml Documented by: Temazepam (Temazepam 15 Mg Capsule) 15 mg PO HSP PRN PRN Reason: Insomnia Throat Lozenges (Benzocaine/Menthol 1 Lozenge) 1 lozenge PO PRN PRN PRN Reason: Sore Throat A/P Narrative A/P Narrative: A/P: *Left hip fracture: s/p ORIF (12/06) -hip/Pain management per ortho -PT OT post surgery as per orthopedics -CM for placement -ppx post op per ortho *leukocytosis: Suspect reactive from fracture and surgery -afebrile, UA unremakable, no respiratory symptoms -check man diff Time Spent With Patient Time: Total time spent is greater than 50% in coordination of care (as documented) at patient's floor/unit and/or counseling patient: QUALITY VTE Deep Vein Thrombosis/Pulmonary Embolism Present on Admission: No
[2020-12-07 08:49] LABS: ALT/SGPT 16 U/L (<40); AST/SGOT 36 U/L (<32); Albumin 3.5 gm/dL (3.2-5.2); Albumin/Globulin Ratio 1.5 (1.0-2.3); Alkaline Phosphatase 106 U/L (39-117); Bilirubin,Direct < 0.2 mg/dL (0-0.3); Bilirubin,Total 0.4 mg/dL (0.1-1.0); Blood Urea Nitrogen 13 mg/dL (8-23); Calcium 8.9 mg/dL (8.6-10.4); Carbon Dioxide 27 mmol/L (22-30); Chloride 103 mmol/L (96-108); Globulin 2.4 gm/dL (2.2-3.7); Glomerular Filtration Rate 90; Glucose 109 mg/dL (70-105); Lactate Dehydrogenase 246 U/L (135-225); Phosphorous 3.4 mg/dL (2.5-4.5); Triglycerides 128 mg/dL (<150); Uric Acid 4.7 mg/dL (2.5-8.0)
--- NOTE | 2020-12-07 09:57 | Orthopedic Progress Note ---
SUBJECTIVE Subjective Patient information: Note initiated : 12/07/20 at 9:55 am Service Date, if different from initiated Date: [] Patient: Hailee Quintana 65 y/o F admitted on 12/05/20 for Lf femur fracture. Chief Complaint: [Pt is stable this morning on post operative day without any significant concerns or complaints. Patients vital signs have remained stable. Patients dressing is dry and is grossly intact from a neurovascular and motor standpoint. Patients 10 point ROS is otherwise negative. ] Constitutional Vitals: Vital Signs Temp Pulse Resp BP Pulse Ox 97.7 F 80 16 134/69 96 12/07/20 08:00 12/07/20 08:00 12/07/20 08:00 12/07/20 08:00 12/07/20 08:00 Period Temp Pulse Resp BP Sys/Jarvis Pulse Ox Last 24 Hr 96.9 F-97.8 F 54-82 8-20 111-158/58-84 93-100 Intake and Output 12/06/20 12/07/20 12/07/20 21:59 05:59 13:59 Intake Total 1200 1400 400 Output Total 1400 500 Balance -200 900 400 Weight 206 lb 14.4 oz Intake & Output: Intake & Output 12/06/20 12/07/20 12/07/20 21:59 05:59 13:59 Intake Total 1200 1400 400 Output Total 1400 500 Balance -200 900 400 Weight 206 lb 14.4 oz Intake: IV 100 1000 Lactated Ringers 1,000 ml @ 100 1000 mls/hr IV .Q10H [facility] Rx#: [id number] Oral 1000 400 400 IV - Manual Only 100 Output: Urine Catheter Amount 1400 Uretheral (Jonas) 1200 Void Amount 500 Other: Meal Dinner Breakfast Percent of Meal Consumed 100% 75% Feeding Ability Independent Independent Urine Appearance Clear Clear Clear Uretheral (Jonas) Clear Urine Color Pale Bright Yellow Straw Uretheral (Jonas) Pale Urine Odor Normal Uretheral (Jonas) Normal Extremities Exam Extremities exam: Present normal capillary refill, normal inspection, Foot pink and warm and neurovascular intact OBJ DATA Labs CBC & Chem 7: 12/07/20 06:12 12/07/20 06:12 Labs: Abnormal Lab Results 12/07/20 12/07/20 12/06/20 06:12 06:12 05:35 WBC 15.1 H MPV 10.8 H Neut % (Auto) Lymph % (Auto) 12.3 L Lymph # (Auto) [place] # (Auto) 1.64 H Absolute Neutrophils 11.61 H Anion Gap 7.0 L Glucose 109 H 110 H AST 36 H Alkaline Phosphatase Lactate Dehydrogenase 246 H Urine Appearance Urine Ketones 12/06/20 12/05/20 12/05/20 05:35 15:05 14:06 WBC 11.8 H MPV Neut % (Auto) Lymph % (Auto) Lymph # (Auto) [place] # (Auto) 1.11 H Absolute Neutrophils 8.51 H Anion Gap Glucose AST Alkaline Phosphatase 125 H Lactate Dehydrogenase Urine Appearance Hazy A Urine Ketones 5 A 12/05/20 14:06 WBC 13.6 H MPV 11.9 H Neut % (Auto) 86.9 H Lymph % (Auto) 8.4 L Lymph # (Auto) 1.15 L [place] # (Auto) Absolute Neutrophils 11.84 H Anion Gap Glucose AST Alkaline Phosphatase Lactate Dehydrogenase Urine Appearance Urine Ketones Meds: Medications Acetaminophen (Acetaminophen 325 Mg Tablet) 650 mg PO Q4-6HP PRN; Protocol PRN Reason: Per Pain Protocol/Fever > 101 Hydrocodone Bitart/Acetaminophen (Hydrocodone/Apap 10/325mg Tablet) 1 - 2 tab PO Q4HP PRN; Protocol PRN Reason: Per Pain Protocol Last Admin: 12/07/20 09:38 Dose: 2 tab Documented by: Bisacodyl (Bisacodyl 10 Mg Supp.Rect) 10 mg [place] Q2-3DAYS PRN PRN Reason: Constipation Docusate Sodium (Docusate Sodium 100 Mg Capsule) 100 mg PO BID [facility] Last Admin: 12/07/20 08:26 Dose: 100 mg Documented by: Guaifenesin/Codeine Phosphate (Guaifenesin/Codeine 10 Ml Udc) 10 ml PO Q4HP PRN PRN Reason: Cough Hydromorphone HCl (Hydromorphone 1 Mg/Ml Syringe) 0.5 - 2 mg IV Q2HP PRN; Protocol PRN Reason: Per Pain Protocol Potassium Chloride 40 meq/ (Dextrose) 520 mls @ 130 mls/hr IV UD PRN PRN Reason: K+ = or < 3.5 Acetaminophen (Ofirmev) 650 mg in 65 mls @ 130 mls/hr IV Q6HP PRN; Protocol PRN Reason: Per Pain Protocol/Fever > 101 Magnesium Sulfate (Magnesium Sulfate) 2 gm in 50 mls @ 50 mls/hr IV UD PRN PRN Reason: MG = or < 1.7 Iron Carb/Multivit/Hat Lining Blocker/Folic Acid (Multivit,Ther Iron,Ca,Fa & Min 1 Tablet) 1 tab PO DAILY [facility] Last Admin: 12/07/20 08:26 Dose: 1 tab Documented by: Magnesium Hydroxide (Magnesium Hydroxide 30 Ml Oral.Susp) 30 ml PO BIDP PRN PRN Reason: Constipation Melatonin (Melatonin 3 Mg Tablet) 3 mg PO HSP PRN PRN Reason: Insomnia Ondansetron HCl (Ondansetron 4 Mg Odt Tablet) 4 mg SL Q4-6HP PRN; Protocol PRN Reason: Nausea And Vomiting Ondansetron HCl (Ondansetron 4 Mg/2 Ml Vial) 4 mg IV Q4-6HP PRN; Protocol PRN Reason: Nausea And Vomiting Polyethylene Glycol (Polyethylene Glycol 3350 17 Gm Packet) 17 gm PO DAILYP PRN PRN Reason: Constipation Senna (Sennosides 1 Tablet) 2 tab PO HS [facility] Last Admin: 12/06/20 21:00 Dose: 2 tab Documented by: Sodium Biphosphate/Sodium Phosphate (Fleets Adult Enema) 1 dose [place] Q3-4DAYS PRN PRN Reason: Constipation Sodium Chloride (0.9 % Sodium Chloride 10 Ml Syringe) 10 ml IV Q8 [facility] Last Admin: 12/07/20 04:01 Dose: 10 ml Documented by: Sodium Chloride (0.9 % Sodium Chloride 10 Ml Syringe) 10 ml IV Q8 [facility] Last Admin: 12/07/20 04:07 Dose: 10 ml Documented by: Temazepam (Temazepam 15 Mg Capsule) 15 mg PO HSP PRN PRN Reason: Insomnia Throat Lozenges (Benzocaine/Menthol 1 Lozenge) 1 lozenge PO PRN PRN PRN Reason: Sore Throat A/P Narrative A/P Narrative: The patient has been educated regarding dressing care, Physical Therapy recommendations, home exercises, restrictions, and follow up appointments. The patient has had all necessary DME prescribed. The patient has remained relatively stable during their hospital course. Pt has progressed quicker than expected and meets the criteria for early discharge per Physicial Therapy and our evaluation. Time Spent With Patient Time: Total time spent is greater than 50% in coordination of care (as documented) at patient's floor/unit and/or counseling patient: Total time spent with greater than 50% in coordination of care (as documented) at patient's floor/unit and/or counseling patient:: less than 15 minutes
[2020-12-07 10:59] LABS: Band Neutrophils % 1 % (0-10); Lymphocytes % 14 % (15-49); Monocytes % (Manual) 14 % (1-12); Platelet Estimate NORMAL (Normal); RBC Morphology NORMAL (Normal); Segmented Neutrophils % 71 % (38-78)
--- NOTE | 2020-12-07 13:12 | Discharge Summary ---
Discharge Provider Provider Patient information: Note initiated : 12/07/20 at 1:10 pm Service Date, if different from initiated Date: [] Patient: Hailee Quintana 65 y/o F admitted on 12/05/20 for Lf femur fracture. Chief Complaint: [] Date of admission: 12/05/20 16:27 Discharge date: 12/08/20 Primary care physician: Unknown Unknown Consults: 12/05/20 Consult to Physician [CONS] Stat Comment: Consulting Provider: Anatoliy Tapia Reason For Exam: Physician to Consult Consult to Physician [CONS] Stat Comment: e Consulting Provider: oJvanni Ortiz Reason For Exam: Physician to Consult Discharge Meds Discharge Medications Home Medications No Known Home Meds 12/05/20 [History Confirmed 12/05/20 Last Taken Unknown] aspirin [Ecotrin Low Strength] 81 mg PO BID #60 tab 12/06/20 [Rx Last Taken Unknown] docusate sodium [DOK] 100 mg PO BID #60 cap 12/06/20 [Rx Last Taken Unknown] hydrocodone-acetaminophen 1 - 2 tab PO Q4H PRN #75 tab 12/06/20 [Rx Last Taken Unknown] COURSE Hospital Course Hospital course: Interval history: Ms. Quintana is a 65 year old F who lives with her at [place] and fairly healthy at baseline who was getting off her suburban climbing down backward and missed the ledge landing on the concrete surface. Patient immediately felt pain and was taken to the ER where she was diagnosed with left hip fracture. Orthopedics were consulted and recommended transfer patient to [facility] ER for further evaluation and operative intervention. Work-up was essentially unremarkable with a normal biochemical profile, white count 13.5. Patient denies history of DM type II/CAD/CVA/HTN and currently is on no medications. She has 8 kids, has had , non-smoker. She denies precipitating events including lightheadedness dizziness prior or loss of consciousness following fall. 12/06-patient doing well. Await surgery this morning. Pain good control. No overnight fever chills. Will review postop 12/07 Patient doing well. No overnight events. Had surgery yesterday. Elevated white blood cell count but patient feels well and is afebrile. No cough or urinary symptoms. 12/08 No overnight event or new complaints. Patient doing well. Leukocytosis essentially resolved. Stable for discharge. A/P: *Left hip fracture: s/p ORIF (12/06) -hip/Pain management per ortho -PT OT post surgery as per orthopedics -CM for placement -ppx post op per ortho *leukocytosis: reactive from fracture and surgery -afebrile, UA unremakable, no respiratory symptoms, no bandemia Discharge diagnosis: Left hip fracture Time Spent with Patient Time attestation: Total time spent providing and/or coordinating discharge services: Time spent: Greater than 30 minutes EXAM Constitutional Vitals: Temp Pulse Resp BP Pulse Ox 98.3 F 82 18 117/61 95 12/07/20 11:48 12/07/20 11:48 12/07/20 11:48 12/07/20 11:48 12/07/20 11:48 Discharge Data Data Completed and Pending Labs on day of discharge: Labs from last 24 hours 12/07/20 12/07/20 12/07/20 06:12 06:12 06:12 WBC 15.1 H RBC 4.28 Hgb 12.7 Hct 38.9 MCV 90.9 MCH 29.7 MCHC 32.6 RDW 13.4 Plt Count 256 MPV 10.8 H Neut % (Auto) 76.7 Lymph % (Auto) 12.3 L [place] % (Auto) 10.8 Eos % (Auto) 0 Baso % (Auto) 0.2 Lymph # (Auto) 1.86 [place] # (Auto) 1.64 H Eos # (Auto) 0 Baso # (Auto) 0.03 Seg Neutrophils % 71 Band Neutrophils % 1 Lymphocytes % 14 L Monocytes % (Manual) 14 H Absolute Neutrophils 11.61 H Platelet Estimate Normal RBC Morphology Normal Sodium 139 Potassium 4.2 Chloride 103 Carbon Dioxide 27 Anion Gap 9.0 BUN 13 Creatinine 0.7 GFR Calculation 90 Glucose 109 H Uric Acid 4.7 Calcium 8.9 Phosphorus 3.4 Magnesium 2.0 Total Bilirubin 0.4 Direct Bilirubin < 0.2 GGT 15 AST 36 H ALT 16 Alkaline Phosphatase 106 Lactate Dehydrogenase 246 H Total Protein 5.9 Albumin 3.5 Globulin 2.4 Albumin/Globulin Ratio 1.5 Triglycerides 128 Discharge Plan Patient/Caregiver Discharge Instructions Activity: ambulate only with your walker and as per physical therapy Diet: Regular Diet Activity Restrictions/Additional Instructions: Follow-up with PCP in 3 to 7 days Follow-up with PT OT Prescriptions: New docusate sodium [DOK] 100 mg Capsule 100 mg PO BID Qty: 60 RF: 0 hydrocodone-acetaminophen 10-325 mg Tablet 1 - 2 tab PO Q4H PRN (Reason: Pain) Qty: 75 RF: 0 aspirin [Ecotrin Low Strength] 81 mg tablet,delayed release (DR/EC) 81 mg PO BID Qty: 60 RF: 0 No Action No Known Home Meds RF: 0 Other Ambulatory Orders: Physical Therapy DC - NOEL (Routine) Location: None Selected Ordered By: Navid Carrillo Toilet Riser Discharge Order (ONCE) Location: None Selected Ordered By: Navid Carrillo Walker (ONCE) Location: None Selected Ordered By: Navid Carrillo Follow Up Plan Follow up with: Navid Carrillo PA-C [Physician Optical Design Engineer] - Unknown,Unknown [Primary Care Provider] - Patient Disposition: Home, Self-Care Prognosis: Good Rehab Potential: Good I certify that the patient requires SNF services: No Overall status at discharge: patient is progressing back to baseline Discharge Orders: Discharge Order (Routine); Ordered 12/07/20 Ordered By: Navid Carrillo QUALITY VTE Deep Vein Thrombosis/Pulmonary Embolism Present on Admission: No
[2020-12-07] MEDS: SENNOSIDES 1 TABLET PO SCH (21:08)
[2020-12-08] MEDS: HYDROcodone/APAP 10/325MG TABLET PO PRN ×3 (01:03→12:25)
[2020-12-08] MEDS: 0.9 % SODIUM CHLORIDE 10 ML SYRINGE IV SCH ×2 (04:26)
[2020-12-08 07:03] LABS: Hematocrit 34.8 % (36.0-48.0); Hemoglobin 11.5 g/dL (12.0-15.0); Mean Cell Volume 90.6 fL (80.0-100.0); Mean Platelet Volume 10.6 fL (7.4-10.4); Platelet Count 219 K/mcL (140-440); RBC 3.84 M/mcL (4.00-5.20); Red Cell Distribution Width 13.5 % (11.5-14.5); WBC 11.9 K/mcL (4.5-11.0)
[2020-12-08] MEDS: DOCUSATE SODIUM 100 MG CAPSULE PO SCH (08:22)
[2020-12-08] MEDS: MULTIVIT,THER IRON,CA,FA & MIN 1 TABLET PO SCH (08:22)
[2020-12-08 12:24] LABS: Eosinophils % (Manual) 1 % (0-7); Lymphocytes % 24 % (15-49); Monocytes % (Manual) 9 % (1-12); Platelet Estimate NORMAL (Normal); RBC Morphology NORMAL (Normal); Segmented Neutrophils % 66 % (38-78)
--- NOTE | 2020-12-09 14:19 | Operative Note ---
DATE OF OPERATION: 12/06/2020 PREOPERATIVE DIAGNOSES: Femoral neck fracture significantly displaced with hip dysplasia of her left hip. POSTOPERATIVE DIAGNOSES: Femoral neck fracture significantly displaced with hip dysplasia of her left hip. PROCEDURE: Left total hip arthroplasty for a displaced femoral neck fracture with hip dysplasia. SURGEON: Stevan العلي M.D. RAILROAD DETECTIVE: Navid Carrillo PA-C. The PA's assistance was required for the safe and efficient completion of the entire case. This provider's expertise and technical skill were required throughout the case. The PA assisted with preoperative coordination, intraoperative retraction, wound closure, dressing and splint application, as well as postoperative documentation and care coordination. ESTIMATED BLOOD LOSS: 50 mL. SPECIMENS SENT: None. CONDITION: Stable. DISPOSITION: To PACU. COMPLICATIONS: None. IMPLANTS: Robert total hip arthroplasty. DESCRIPTION OF PROCEDURE: The patient was brought to the operating room, put to sleep with general LMA anesthesia. Once asleep, the patient had the left hip sterilely prepped and draped in the usual sterile fashion, turned into right lateral position using the Elias positioner. Timeout was performed, confirming the left hip as the operative site by initials, consent form, and x-rays. A superior approach was then made. The capsule was released and the fractured femoral neck was removed from the acetabulum. At this point, we then made a new neck cut, which was approximately 32 mm from the center of hip rotation. We reamed up on the acetabulum to size 50. While we were reaming the acetabulum, it was noted that we had retroversion and hip dysplasia. We then positioned the cup in 20 degrees of anteversion and 40 degrees of inclination. A screw was placed into the bone with good purchase and then a non-hooded liner was placed. Once this was placed for a 36 mm ball, we broached up on the femur. We placed a +2.5 mm neutral neck length with a high offset stem. We took x-rays to confirm leg length and because we had increased leg length, we re-broached the stem by reaming up on the canal and seating the stem slightly more inferiorly, going to a high offset stem with a 127-degree neck angle. A 36 mm ball was placed. This gave the hip full range of motion without dislocation or subluxation. These final implants were placed with good purchase. We irrigated thoroughly. We then repaired the capsule with #2 Ethibond. We closed the capsule with Stratafix and then closed the skin with adhesive closure. Leg lengths were equal. Position was excellent and stability was excellent. We irrigated thoroughly. The patient awoke without difficulty. RBH:shira Job ID: [id number] Doc ID: [id number] Stevan العلي MD
== END 2020-12-08 12:30 | disposition home or self-care (01) | DRG 522 ==
LOC: ED 13:36 → MEDSUR 16:27
PROVIDERS: ADMIT Internal Medicine; ATTEND Internal Medicine